=== PATIENT | male | born 1995 | race Caucasian/White ===

== ENCOUNTER → 2016-06-05 | Outpatient (CLI) | payer BC ==
--- NOTE | 2016-06-05 16:51 | CR ---
EXAMINATION: Right knee HISTORY: Pain COMPARISON: 06/03/2016 TECHNIQUE: 3 views FINDINGS/IMPRESSION: There is no acute osseous abnormality, dislocation, or fracture identified. Bon e mineralization and joint spaces appear normal. No soft tissue swelling or joint effusion.
== END ==
LOC: MW.CHORTHO 08:20
PROVIDERS: ATTEND Physician Assistant
DX: M25.561 Pain in right knee (principal)
CPT/HCPCS: 73562-26-RT; 73562-RT

== ENCOUNTER → 2016-06-08 | Outpatient (CLI) | payer BC ==
--- NOTE | 2016-06-11 09:11 | MR ---
EXAMINATION: MRI right knee HISTORY: Pain COMPARISON: Radiographs dated 06/05/2016 TECHNIQUE: Multiplanar and multisequence images obtained of the right knee without contrast. FINDINGS: The patellar and quadriceps tendons appear normal. ACL and the PCL are intact. There is po ssibly an undersurface vertical tear within the red zone of the posterior horn of the medial meniscu s. The lateral meniscus appears intact. The lateral collateral ligament complex is preserved. There is moderate stranding adjacent to the medial collateral ligament with intrinsic T2 signal. The artic ular surfaces appear preserved. IMPRESSION: 1. Grade 2 sprain of the medial collateral ligament. 2. Possible red zone undersurface tear of the posterior horn of the medial meniscus.
== END ==
LOC: MW.MRI 09:00
PROVIDERS: ATTEND Physician Assistant
DX: M25.561 Pain in right knee (principal)
CPT/HCPCS: 73721-26-RT; 73721-RT